=== PATIENT | female | born 1985 | race Two or more races ===

== ENCOUNTER → 2021-10-01 | Outpatient (REF) | LOC: M LAB 12:15 | PROVIDERS: ATTEND Nurse Practitioner Adult Health | DX: Z02.89 Encounter for other administrative examinations (principal) ==

== ENCOUNTER 2022-02-07 18:45 | Emergency (ER) | payer SELFPAY ==
[~2022-02-07] VITALS: Ht 180.3 cm; Wt 116.9 kg
[2022-02-07 18:49] VITALS: BP 131/79
[2022-02-07] MEDS ORDERED: SUBO8MIS SL (19:08)
== END 2022-02-07 22:42 | disposition left against medical advice (07) ==
LOC: M ED 18:45
DX: Z53.21 Procedure and treatment not carried out due to patient leaving prior to being seen by health care provider (principal)

== ENCOUNTER → 2022-05-27 | Outpatient (REF) ==
[~2022-05-27] MED LIST: SUBO8MIS SL
[2022-05-27 10:52] LABS: RSV AMPLIFICATION NEGATIVE (NEGATIVE)
== END ==
LOC: M EMP 09:31
PROVIDERS: ATTEND Family Medicine
DX: Z11.52 Encounter for screening for COVID-19 (principal)

== ENCOUNTER 2022-07-14 01:12 | Emergency (ER) | payer SELFPAY ==
[~2022-07-14] VITALS: Ht 180.3 cm; Wt 118.8 kg
[2022-07-14 01:13] VITALS: BP 140/70
== END 2022-07-14 02:07 | disposition left against medical advice (07) ==
LOC: M ED 01:12
DX: Z53.21 Procedure and treatment not carried out due to patient leaving prior to being seen by health care provider (principal)

== ENCOUNTER → 2023-05-30 | Outpatient (REF) | LOC: M EMP 12:59 | PROVIDERS: ATTEND Family Medicine | DX: Z20.822 Contact with and (suspected) exposure to COVID-19 (principal) ==

== ENCOUNTER 2023-06-11 02:33 | Emergency (ER) | payer OTHER, SELFPAY ==
[~2023-06-11] VITALS: Ht 177.8 cm; Wt 100.0 kg
[2023-06-11] MEDS ORDERED: POLY2.5S OP (08:02)
[2023-06-11 08:20] VITALS: BP 122/62; TEMP 96.7; O2SAT 100
== END 2023-06-11 08:25 | disposition home or self-care (01) ==
LOC: M ED 02:33
DX: H10.33 Unspecified acute conjunctivitis, bilateral (principal); Z79.2 Long term (current) use of antibiotics

== ENCOUNTER 2023-07-06 21:19 | Emergency (ER) | payer OTHER ==
[~2023-07-06] VITALS: Ht 180.3 cm; Wt 101.3 kg
[~2023-07-06 21:19] MED LIST changes: +POLY2.5S OP
[2023-07-06 21:20] VITALS: BP 137/86; TEMP 97.9; O2SAT 100
[2023-07-06] MEDS ORDERED: NS 1,000 ML IV ONE (21:55)
[2023-07-06] MEDS ORDERED: dexAMETHasone 20MG/5ML VIAL IV ONE (21:55)
[2023-07-06] MEDS ORDERED: cefTRIAXone SOD 2 GM in D5W MINI-BAG PLUS 50 ML IV ONE (21:55)
[2023-07-06] MEDS ORDERED: ISOVUE-370 76% 100ML VIAL As Ordered ONE (22:24)
[2023-07-06 22:26] LABS: BASO % 0.3 % (0.0-1.0); EOS # 0.2 10^3/uL (0.0-0.5); EOS % 1.6 % (0.0-3.0); HEMATOCRIT 40.4 % (36.0-47.0); HEMOGLOBIN 13.5 g/dl (12.0-15.5); LYMPH # 2.2 10^3/uL (1.5-5.0); LYMPH % 24.5 % (24.0-44.0); MEAN CORPUSCULAR HEMOGLOBIN 31.9 pg (27.0-33.0); MEAN CORPUSCULAR HGB CONC 33.4 g/dl (32.0-36.5); MEAN CORPUSCULAR VOLUME 95.5 fl (80.0-96.0); MONO # 0.6 10^3/uL (0.0-0.8); NEUTROPHILS # 6.2 10^3/uL (1.5-8.5); NEUTROPHILS % 67.4 % (36.0-66.0); PLATELET COUNT, AUTOMATED 299 10^3/uL (150-450); RED BLOOD COUNT 4.23 10^6/uL (4.00-5.40); WHITE BLOOD COUNT 9.1 10^3/uL (4.0-10.0)
[2023-07-06 22:40] LABS: ERYTHROCYTE SEDIMENTATION RATE 6 mm/hr (0-20)
[2023-07-06] MEDS ORDERED: OFLOXACIN 0.3 % (OCUFLOX) OPTH SOL 5ML OU ONE (23:25)
[2023-07-06] MEDS ORDERED: KETOROLAC 30 MG/ML 1ML VIAL IV ONE (23:25)
[2023-07-07] MEDS ORDERED: CEFD1CAP9 PO (00:54)
[2023-07-07] MEDS ORDERED: OFLO5DRO OU (00:54)
[2023-07-07] MEDS ORDERED: PRED20TA PO (00:54)
== END 2023-07-07 01:05 | disposition home or self-care (01) ==
LOC: M ED 21:19
DX: H10.33 Unspecified acute conjunctivitis, bilateral (principal); H01.139 Eczematous dermatitis of unspecified eye, unspecified eyelid; F17.210 Nicotine dependence, cigarettes, uncomplicated; Z79.2 Long term (current) use of antibiotics; Z79.52 Long term (current) use of systemic steroids
CPT/HCPCS: 70481; 80047; 85025; 85652; 86140; 87040; 87070; 87077; 87186; 87205; 96365; 96375; 99283; J0696; J1100; J1885; Q9967